=== PATIENT | female | born 1985 | race Caucasian/White ===

== ENCOUNTER 2018-11-22 22:21 | Outpatient (CLI) | payer MEDICAID ==
[~2018-11-22] VITALS: Ht 154.9 cm; Wt 85.0 kg
[2018-11-22 22:43] VITALS: Ht 154.9 cm; Wt 85.0 kg
[2018-11-22] MEDS ORDERED: PREN-93 PO (22:43)
[2018-11-22 22:44] VITALS: BP 115/57; PULSE 95; RESP 20
--- NOTE | 2018-11-22 23:35 | TRIAGE ---
OB Triage Datetime Report Generated by CPN: 11/22/2018 23:34 Datetime: 11/22/2018 22:54 Labor Evaluation Frequency: x1 Monitor Mode: External Duration (sec)2399: 40 Quality: Mild Pattern: Normal: <= 5 Contractions in 10 Minutes Resting Tone [place]: Relaxed Contraction Comments: abd soft to touch and nontender Heart Rate FHR Baseline Rate: 140 Monitor Mode: External US Variability: Moderate 6-25 bpm Accelerations: 15X15 Decelerations: None Category: Category I Datetime: 11/22/2018 22:46 Comments: U/S AT BEDSIDE Datetime: 11/22/2018 22:34 Time of Arrival: 11/22/2018 22:09 EGA: 31.1 Arrived By: Wheelchair Arrived From: Home Chief Complaint: CHEST PAIN, SOB, DFM Movement: Decreased Contractions: Denies/Absent Rupture of Membranes: Denies Vaginal Bleeding: None Vaginal Discharge: Denies Recent Sexual Intercouse: Denies Abdominal Trauma: Not Applicable Patient Complaints: None Time Provider Notified: 11/22/2018 22:45 Provider Notified: NIKOLAS Initial Plan: U/A, NST Datetime: 11/22/2018 22:29 Pain Assessment Pain Scale: 4 Pain Presence: Constant Pain Type: Pressure Pain Location: Sternum Pain Goal: 4 Pain Relief Measures: Comfort Measures Pain Assessment Comments: STATES PAIN IS TOLERABLE AND HAS BEEN ON GOING FOR 3 DAYS Datetime: 11/22/2018 22:28 Vaginal Exam Membrane Status: Intact Datetime: 11/22/2018 22:09 Assessment Type: Triage Maternal Assessment Level of Consciousness: Keenly Alert, Responsive DTR's/Clonus: DTRs 2+; No Clonus Headache: Denies Blurred Vision: No Respiratory Effort: Unlabored; Regular Rhythm; Equal Expansion Breath Sounds, Left: Clear and Equal Breath Sounds, Right: Clear and Equal Nausea/Vomiting: Denies RUQ Epigastric Pain: Denies Lower Extremities Edema: None Degree: None Upper Extremities Edema: None Degree: None Facial Edema: None Fall Risk Assessment History of Falling: (0) No Secondary Diagnosis: (0) No Ambulatory Aid: (0) Bedrest/Nurse Assist IV Therapy: (0) No Gait: (0) Normal/Bedrest/Immobile Mental Status: (0) Oriented to Own Ability Fall Score: 0 Fall Risk Score Definition: No Risk: No action required
== END 2018-11-22 22:51 | disposition home or self-care (01) ==
LOC: OBT 22:21 → L-D 22:23 → OBT 22:51
PROVIDERS: ATTEND Obstetrics & Gynecology
DX: O26.893 Other specified pregnancy related conditions, third trimester (principal); R07.9 Chest pain, unspecified; R06.02 Shortness of breath; O36.8130 Decreased fetal movements, third trimester, not applicable or unspecified; Z3A.31 31 weeks gestation of pregnancy
CPT/HCPCS: 76818; Z7500; G0463

== ENCOUNTER 2018-11-22 23:09 | Emergency (ER) | payer MEDICAID ==
[~2018-11-22] VITALS: Ht 154.9 cm; Wt 84.5 kg
[~2018-11-22 23:09] MED LIST: PREN-93 PO
[2018-11-22 23:10] VITALS: Ht 154.9 cm; Wt 84.5 kg
[2018-11-23 01:30] VITALS: BP 120/81; PULSE 79; RESP 20
== END 2018-11-23 01:31 | disposition home or self-care (01) ==
LOC: E/R 23:09
DX: R07.9 Chest pain, unspecified (principal); R40.2142 Coma scale, eyes open, spontaneous, at arrival to emergency department; R40.2252 Coma scale, best verbal response, oriented, at arrival to emergency department; R40.2362 Coma scale, best motor response, obeys commands, at arrival to emergency department
CPT/HCPCS: 80053; 84484; 85025; 93005

== ENCOUNTER 2019-01-20 12:37 | Inpatient (IN) | payer MEDICAID ==
[~2019-01-20] VITALS: Ht 157.5 cm; Wt 86.3 kg
[~2019-01-20 12:37] MED LIST changes: +DOCU-144 PO; +FER325 PO; +HYDR-3601 PO; +IBUP800T48 PO
[2019-01-20 12:56] VITALS: BP 110/54; PULSE 63; RESP 19; Ht 157.5 cm; Wt 86.3 kg
[2019-01-20] MEDS ORDERED: METHYLERGONOVINE 0.2 MG INJ IM PRN ×2 (14:30→22:30)
[2019-01-20] MEDS ORDERED: OXYTOCIN 30 UNITS/LR 500 ML IV SCH ×2 (14:30→22:20)
[2019-01-20] MEDS ORDERED: CARBOPROST 250 MCG INJ IM PRN ×2 (14:30→22:30)
[2019-01-20] MEDS ORDERED: OXYTOCIN 30 UNITS/LR 500 ML IV PRN ×2 (14:30→22:30)
[2019-01-20] MEDS ORDERED: MISOPROSTOL 200 MCG TAB PR PRN ×2 (14:30→22:30)
[2019-01-20] MEDS ORDERED: CEFAZOLIN 2 GM/50 ML (PMX) 50 ML IVPB SCH (14:30)
[2019-01-20] MEDS: LACTATED RINGER'S 1,000 ML IV SCH ×2 (14:45→15:00)
[2019-01-20] MEDS ORDERED: ONDANSETRON 4 MG INJ IV STA (15:35)
[2019-01-20] MEDS ORDERED: METOCLOPRAMIDE 10 MG INJ IV ONE (16:00)
[2019-01-20] MEDS ORDERED: KETOROLAC 30 MG INJ IV PRN (17:30)
[2019-01-20] MEDS ORDERED: NALOXONE (0.4 MG/ML) INJ IV PRN (17:30)
[2019-01-20] MEDS ORDERED: DIPHENHYDRAMINE 50 MG INJ IV PRN ×2 (17:30)
[2019-01-20] MEDS ORDERED: FENTAnyl 50 MCG/ML VIAL IV PRN ×2 (17:30)
[2019-01-20] MEDS ORDERED: HYDROmorphONE 1 MG/5 ML IV SYRINGE IV PRN ×2 (17:30)
[2019-01-20] MEDS ORDERED: METOCLOPRAMIDE 10 MG INJ IV PRN (17:30)
[2019-01-20] MEDS ORDERED: HYDROmorphONE 0.5 MG/0.5 ML SYG IV PRN ×2 (17:30)
[2019-01-20] MEDS ORDERED: ONDANSETRON 4 MG INJ IV PRN ×2 (17:30)
[2019-01-20] MEDS ORDERED: ALBUTEROL 0.083% (NEB) 2.5 MG/3 ML AMP HHN PRN (17:30)
[2019-01-20] MEDS ORDERED: PHENYLephrine (100 MCG/ML) 10ML SYG ONE (18:28)
[2019-01-20] MEDS ORDERED: EPHEDrine 25 MG/5 ML SYG ONE (18:28)
[2019-01-20] MEDS ORDERED: morphine SULFATE/PF (10 MG/10 ML) INJ ONE (18:28)
[2019-01-20] MEDS: KETOROLAC 30 MG INJ IV PRN (20:56)
[2019-01-20 22:10] VITALS: BP 110/56; PULSE 61; RESP 17
[2019-01-20] MEDS ORDERED: METHYLERGONOVINE 0.2 MG TAB PO PRN (22:30)
[2019-01-20] MEDS ORDERED: LANOLIN HPA 1 PKT TOP PRN (22:30)
[2019-01-21] VITALS: BP 98/62; PULSE 64; RESP 17
[2019-01-21] MEDS: DEXTROSE 5%-LR 1,000 ML IV SCH ×4 (01:18→14:20)
[2019-01-21 04:00] VITALS: BP 101/50; PULSE 81; RESP 16
[2019-01-21 08:00] VITALS: BP 100/55; PULSE 96; RESP 18
[2019-01-21] MEDS: SENNA/DOCUSATE NA (8.6MG/50MG) TAB PO SCH ×2 (09:10→21:56)
[2019-01-21] MEDS: ASCORBIC ACID 500 MG TAB PO SCH (10:59)
[2019-01-21] MEDS: FERROUS SULFATE (EC) 325 MG TAB PO SCH (10:59)
[2019-01-21] MEDS ORDERED: DIPHTH/TET/ACEL PERTUSS (ADULT) 0.5 ML VIAL IM* ONE (11:00)
[2019-01-21] MEDS: KETOROLAC 30 MG INJ IV PRN (14:31)
[2019-01-21 15:50] VITALS: BP 106/52; PULSE 86; RESP 16
[2019-01-21 20:00] VITALS: BP 124/59; PULSE 79; RESP 18
[2019-01-21] MEDS: HYDROCODONE/APAP (5/325) TAB PO SCH (21:56)
[2019-01-21] MEDS ORDERED: IBUPROFEN 800 MG TAB PO SCH (22:00)
[2019-01-21 23:30] VITALS: BP 112/77; PULSE 82; RESP 18
[2019-01-22 04:00] VITALS: BP 115/56; PULSE 82; RESP 18
[2019-01-22] MEDS: MAGNESIUM HYDROXIDE 30ML CUP PO PRN (06:03)
[2019-01-22] MEDS: HYDROCODONE/APAP (5/325) TAB PO SCH ×3 (06:05→22:05)
[2019-01-22] MEDS: DEXTROSE 5%-LR 1,000 ML IV SCH ×3 (07:00→22:20)
[2019-01-22 08:00] VITALS: BP 100/56; PULSE 87; RESP 18
[2019-01-22] MEDS: SENNA/DOCUSATE NA (8.6MG/50MG) TAB PO SCH ×2 (10:01→22:05)
[2019-01-22] MEDS: FERROUS SULFATE (EC) 325 MG TAB PO SCH (10:01)
[2019-01-22] MEDS: ASCORBIC ACID 500 MG TAB PO SCH (10:01)
[2019-01-22] MEDS: HYDROCODONE/APAP (5/325) TAB PO PRN ×2 (12:18→17:49)
[2019-01-22 16:00] VITALS: BP 117/59; PULSE 83; RESP 18
[2019-01-22 19:45] VITALS: BP 114/63; PULSE 64; RESP 20
[2019-01-23] MEDS: HYDROCODONE/APAP (5/325) TAB PO PRN ×2 (03:34→12:07)
[2019-01-23 04:11] VITALS: BP 109/67; PULSE 76; RESP 20
[2019-01-23] MEDS: HYDROCODONE/APAP (5/325) TAB PO SCH ×2 (06:00→15:20)
[2019-01-23] MEDS: DEXTROSE 5%-LR 1,000 ML IV SCH ×2 (06:20→14:20)
[2019-01-23] MEDS: MAGNESIUM HYDROXIDE 30ML CUP PO PRN (07:28)
[2019-01-23] MEDS: SENNA/DOCUSATE NA (8.6MG/50MG) TAB PO SCH (07:28)
[2019-01-23 08:00] VITALS: BP 110/52; PULSE 71; RESP 18
[2019-01-23] MEDS ORDERED: DIPHTH/TET/ACEL PERTUSS (ADULT) 0.5 ML VIAL IM* ONE (09:00)
[2019-01-23] MEDS ORDERED: MEASLES,MUMPS,RUBELLA VACCINE INJ SC* ONE (09:00)
[2019-01-23] MEDS: ASCORBIC ACID 500 MG TAB PO SCH (10:38)
[2019-01-23] MEDS: FERROUS SULFATE (EC) 325 MG TAB PO SCH (12:38)
[2019-01-23 16:00] VITALS: BP 118/67; PULSE 87; RESP 20
== END 2019-01-23 17:30 | disposition home or self-care (01) | DRG 787 ==
LOC: OBT 12:37 → L-D 12:39 → OBT 14:10 → L-D 14:15 → PP1 22:16
PROVIDERS: ADMIT Obstetrics & Gynecology; ATTEND Obstetrics & Gynecology
PROC: 3E033VJ Introduction of Other Hormone into Peripheral Vein, Percutaneous Approach (ICD-10-PCS; 2019-01-20)
PROC: 10D00Z1 Extraction of Products of Conception, Low, Open Approach (ICD-10-PCS; principal; 2019-01-20 19:00)
DX: O65.5 Obstructed labor due to abnormality of maternal pelvic organs (principal); D62 Acute posthemorrhagic anemia; O34.211 Maternal care for low transverse scar from previous cesarean delivery; O99.214 Obesity complicating childbirth; O76 Abnormality in fetal heart rate and rhythm complicating labor and delivery; O99.02 Anemia complicating childbirth; Z37.0 Single live birth; Z3A.38 38 weeks gestation of pregnancy
CPT/HCPCS: 76818; 80053; 85025; 85610; 85730; 86592; 86850; 86900; 86901; 87340; 90715; 93970; 99464; G0463; J0690; J1885; J2274; J2370; J2405; J2590; J2765; J7120; J7121